=== PATIENT | female | born 1975 | race Caucasian/White ===

== ENCOUNTER → 2021-02-20 13:37 | Outpatient (CLI) | payer OTHER, SELFPAY ==
--- NOTE | 2021-02-20 13:42 | DI.ECHO.S_ITS ---
[facility] +---------+ : : [address] : [address] : : : : [id number] : : : : Phone: [phone] +---------+ Echocardiogram Report + + :Name: JAMAAL KELSEY Study Date: 02/20/2021 Height: 59.5 in: :[facility] ReadingLocation: Weight: 190 lb : : Gender: Female BSA: 1.8 m2 : :: 1975 Age: 46 yrs BP: 142/99 mmHg: :Reason For Study: DYSPNEA : :Ordering Physician: MAKENZIE, : :SUDHA Performed By: Suyapa Aguirre : :Referring: SUDHA ANAYA : + + Interpretation Summary 1) Normal left ventricular thickness, size, wall motion, and systolic function (EF 60-65%). 2) Normal right ventricular size and function. 3) Bicuspid aortic valve suspected. 4) Mild aortic stenosis present (mean gradient 17.5mm Hg). It appears to be overcalculated (1.3cm2) using the continuity equation. Visually, valve opens fairly well and there is not hemodynamically significant aortic stenosis. 5) The ascending aorta is mildly enlarged at 3.7cm. 6) No prior Echo available for comparison. Procedure: A two-dimensional transthoracic echocardiogram with color flow and Doppler was performed. The study quality was technically adequate. There is no prior echocardiogram noted for this patient. The patient was in sinus rhythm with heart rates between 66-76 bpm during the exam. Left Ventricle: The left ventricle is normal in size and wall thickness. The ejection fraction is estimated to be 60-65%. Left ventricular systolic function appears normal without focal wall motion abnormalities. Right Ventricle: The right ventricle is normal in size and function. Atria: The left atrial size is normal. Right atrial size is normal. There is no Doppler evidence for an interatrial shunt. Mitral Valve: The mitral valve is normal in structure and function. There is trace mitral regurgitation. Aortic Valve: The aortic valve opens well. A bicuspid aortic valve cannot be excluded. The peak aortic velocity is 2.78 m/sec. The aortic valve mean gradient is 18 mmHg. The calculated aortic valve area is 1.3 cm2. There is mild aortic regurgitation. Tricuspid Valve: The tricuspid valve is normal in structure and function. There is trace tricuspid regurgitation. Pulmonary artery pressures cannot be estimated because of the lack of a measurable TR jet velocity but the IVC suggests a CVP of around 3 mmHg. Pulmonic Valve: The pulmonic valve leaflets are thin and pliable; valve motion is normal. There is mild pulmonic regurgitation. Great Vessels: The aortic root is normal size. The ascending aorta is mildly enlarged. The IVC is of normal diameter and collapses greater than 50% with a sniff. This suggests a low right atrial pressure of 3 mm Hg. Pericardium/ Pleura There is no pericardial effusion. There is no pleural effusion. MMode/2D Measurements & Calculations LVIDd: 4.6 cm LVOT diam: 2.3 cm LVIDs: 3.2 cm Ao root diam: 3.3 cm FS: 29.3 % asc Aorta Diam: 3.7 cm IVSd: 0.97 cm Ao Arch Diam (Prox Trans): 2.9 cm LVPWd: 0.96 cm LV brunner. diameter/BSA (cm/m^2): 2.5 LV sys. diameter/BSA (cm/m^2): 1.8 LA A2 area: 17.3 cm2 RA long axis: 4.9 cm LA A4 area: 15.0 cm2 RA area: 13.5 cm2 LA length (vol): 5.5 cm RA vol: 31.4 ml LA vol: 40.1 ml RA : 17.3 ml/m2 LA vol index: 22.1 ml/m2 IVC diam: 1.2 cm RVD1 (basal): 3.9 cm TAPSE: 1.7 cm Doppler Measurements & Calculations Ao V2 max: 277.8 cm/sec LVOT Max Arya: 83.0 cm/sec Ao V2 mean: 196.9 cm/sec LV V1 max P.8 mmHg Ao max P.9 mmHg LV V1 VTI: 18.4 cm Ao mean P.5 mmHg EDWARD(I,D): 1.4 cm2 Ao V2 VTI: 57.7 cm EDWARD(V,D): 1.3 cm2 sev ratio: 0.32 EDWARD indexed to BSA (cm^2/m^2): 0.76 MV E max arya: 87.0 cm/sec PA V2 max: 103.3 cm/sec MV A max arya: 111.2 cm/sec PA V2 mean: 74.6 cm/sec MV E/A: 0.78 PA mean P.5 mmHg Med Peak E' Arya: 4.8 cm/sec PA pr(Accel): 34.5 mmHg E/E' med: 18.0 Lat Peak E' Arya: 9.9 cm/sec E/E' lat: 8.8 E/e' average: 13.4 MV dec time: 0.25 sec SV(OT): 79.5 ml Reading Physician:10:06 AM
== END ==
PROVIDERS: Family Provider Internal Medicine; PCP Internal Medicine; Referring Provider Internal Medicine Cardiovascular Disease; Visit Provider Internal Medicine Cardiovascular Disease
DX: I35.1 Nonrheumatic aortic (valve) insufficiency (principal); I37.1 Nonrheumatic pulmonary valve insufficiency; I77.89 Other specified disorders of arteries and arterioles; R06.00 Dyspnea, unspecified
CPT/HCPCS: 93306

== ENCOUNTER → 2023-02-28 12:10 | Outpatient (CLI) | payer OTHER, SELFPAY ==
--- NOTE | 2023-02-28 | DI.ECHO.S_ITS ---
[facility] +---------+ : : [address] : [address] : : [place] : : : : [id number] : : : : Phone: [phone]---------+ Echocardiogram Report + + :Name: JAMAAL KELSEY Study Date: 02/28/2023 Height: 59 in : :[facility] ReadingLocation: Weight: 185 lb : : Gender: Female BSA: 1.8 m2 : :: 1975 Age: 48 yrs BP: 147/100 mmHg: :Reason For Study: Nonrheumatic Aortic Valve Stenosis : :Ordering Physician: MAKENZIE, : :SUDHA Performed By: Tiffanie Guzman : :Referring: SUDHA ANAYA : + + Interpretation Summary 1) Mildly increased left ventricular thickness (concentric) with normal size, normal wall motion, and normal systolic function (EF 55-60%). 2) Normal right ventricular size and function. 3) Bicuspid aortic valve suspected. 4) Mild aortic stenosis present (mean gradient 18mm Hg). It appears to be overcalculated (1.2cm2) using the continuity equation. Visually, valve opens fairly well and there is no hemodynamically significant aortic stenosis. 5) Compared to the Echo done 02/20/2021, no significant change. Procedure: A two-dimensional transthoracic echocardiogram with color flow and Doppler was performed. The study quality was technically difficult. Comparison is made with the echocardiogram of 02/20/2021. A contrast injection of Definity was performed to improve assessment of LV function. The patient was in normal sinus rhythm during the exam. Left Ventricle: The left ventricle is normal in size. There is mild concentric left ventricular hypertrophy. The ejection fraction is estimated to be 55-60%. Left ventricular systolic function is normal. Diastolic parameters suggest a relaxation abnormality of the left ventricle, consistent with probable normal filling pressures. Right Ventricle: The right ventricle is normal size. The right ventricular systolic function is normal. Atria: The left atrial size is normal. Right atrial size is normal. There is no Doppler evidence for an interatrial shunt. Mitral Valve: The mitral valve is not well visualized. There is no mitral valve stenosis. There is no mitral regurgitation noted. Aortic Valve: A bicuspid aortic valve is suspected. The aortic valve opens well. There is mild aortic valve sclerosis. There is mild aortic stenosis. The peak aortic velocity is 2.88 m/sec. The aortic valve mean gradient is 19 mmHg. No aortic regurgitation is present. Tricuspid Valve: The tricuspid valve is not well visualized. There is no tricuspid stenosis. There is trace tricuspid regurgitation. Pulmonary artery pressures cannot be estimated because of the lack of a measurable TR jet velocity. Pulmonic Valve: The pulmonic valve is not well visualized. There is no pulmonic valvular stenosis. There is trace pulmonic regurgitation. Great Vessels: The aortic root is not well visualized. The ascending aorta is normal in size. The pulmonary artery is normal size. The IVC is of normal diameter and collapses greater than 50% with a sniff. This suggests a low right atrial pressure of 3 mm Hg. Pericardium/ Pleura There is no pericardial effusion. There is no pleural effusion. MMode/2D Measurements & Calculations LVIDd: 5.0 cm LVOT diam: 2.3 cm LVIDs: 3.2 cm asc Aorta Diam: 2.8 cm FS: 36.0 % EPSS: 0.80 cm IVSd: 1.2 cm LVPWd: 1.1 cm LV brunner. diameter/BSA (cm/m^2): 2.8 LV sys. diameter/BSA (cm/m^2): 1.8 LA A2 area: 15.6 cm2 RA long axis: 3.9 cm LA A4 area: 17.2 cm2 RA area: 10.6 cm2 LA length (vol): 5.2 cm RA vol: 24.5 ml LA vol: 44.1 ml RA : 13.7 ml/m2 LA vol index: 24.7 ml/m2 RVD1 (basal): 3.8 cm LVAd ap4: 30.3 cm2 LVAs ap4: 18.3 cm2 LVLs ap4: 6.3 cm LVAd ap2: 27.7 cm2 TAPSE_phl: 1.7 cm LVLd ap2: 6.9 cm LVAs ap2: 16.9 cm2 LVLs ap2: 5.9 cm Doppler Measurements & Calculations Ao V2 max: 272.7 cm/sec LVOT Max Arya: 78.3 cm/sec Ao V2 mean: 196.3 cm/sec LV V1 max P.5 mmHg Ao max P.0 mmHg LV V1 VTI: 18.2 cm Ao mean P.7 mmHg EDWARD(I,D): 1.2 cm2 Ao V2 VTI: 64.0 cm EDWARD(V,D): 1.2 cm2 sev ratio: 0.28 EDWARD indexed to BSA (cm^2/m^2): 0.69 MV E max arya: 82.0 cm/sec PA V2 max: 98.6 cm/sec MV A max arya: 123.0 cm/sec PA V2 mean: 72.2 cm/sec MV E/A: 0.67 PA mean P.0 mmHg Med Peak E' Arya: 6.7 cm/sec PA pr(Accel): 23.2 mmHg E/E' med: 12.3 Lat Peak E' Arya: 6.9 cm/sec E/E' lat: 11.9 E/e' average: 12.1 MV dec time: 0.39 sec SV(LVOT): 78.7 ml AV VR_phl: 0.29 EDWARD(VTI)/BSA_phl: 0.50 MV P1/2t-pr_phl: 115.0 msec Reading Physician:03:59 PM
== END ==
PROVIDERS: Family Provider Internal Medicine; PCP Internal Medicine; Referring Provider Internal Medicine Cardiovascular Disease; Visit Provider Internal Medicine Cardiovascular Disease
DX: I35.0 Nonrheumatic aortic (valve) stenosis (principal)
CPT/HCPCS: 93306; Q9957

== ENCOUNTER → 2025-03-08 12:40 | Outpatient (CLI) | payer OTHER, SELFPAY ==
--- NOTE | 2025-03-08 12:41 | DI.ECHO.S_ITS ---
[facility] : : [address] : : [place] : : [id number] : : Phone: [phone] Echocardiogram Report + + :Name: JAMAAL KELSEY Study Date: 03/08/2025 Height: 59 in : :[facility] ReadingLocation: Weight: 200 lb : : Gender: Female BSA: 1.8 m2 : :: 1975 Age: 50 yrs BP: 148/99 mmHg: :Reason For Study: BICUSPID AORTIC VALVE : :Ordering Physician: MAKENZIE, : :SUDHA Performed By: Kurt Forman : :Referring: SUDHA ANAYA : + + Interpretation Summary 1) Mildly increased left ventricular thickness (concentric) with normal size, normal wall motion, and normal systolic function (EF 55-60%). 2) Normal right ventricular size and function. 3) Bicuspid aortic valve suspected. 4) There is mild to moderate aortic stenosis (valve area 1.2cm2, mean gradient 20mmHg, severity ratio 0.33). 5) The ascending aorta is mildly enlarged at 4.1cm. 6) Compared to the echo done 02/28/2023, mild-moderate aortic stenosis is present on this study. Procedure: A two-dimensional transthoracic echocardiogram with color flow and Doppler was performed. A contrast injection of Definity was performed to improve assessment of LV function. The study quality was technically difficult. Comparison is made with the echocardiogram of 02/28/2023. The patient was in normal sinus rhythm during the exam. Left Ventricle: The left ventricle is normal in size. Left ventricular wall thickness is mildly increased. There is no ventricular septal defect visualized. The ejection fraction is estimated to be 55-60%. Diastolic parameters suggest a relaxation abnormality of the left ventricle, consistent with probable normal filling pressures. Right Ventricle: The right ventricle is mildly dilated. The right ventricular systolic function is normal. Atria: The left atrial size is normal. Right atrial size is normal. There is no Doppler evidence for an interatrial shunt. Mitral Valve: There is mild mitral annular calcification. The mitral valve leaflets are mildly calcified. There is no mitral regurgitation noted. Aortic Valve: The aortic valve is not well visualized. A bicuspid aortic valve cannot be excluded. The peak aortic velocity is 2.96 m/sec. The aortic valve mean gradient is 20.4 mmHg. There is mild to moderate aortic stenosis. No aortic regurgitation is present. Tricuspid Valve: The tricuspid valve is not well visualized. No tricuspid regurgitation. Pulmonic Valve: The pulmonic valve is not well visualized. There is trace pulmonic regurgitation. Great Vessels: The aortic root is normal size. The ascending aorta is mildly enlarged. The pulmonary artery is normal size. The IVC is of normal diameter and collapses greater than 50% with a sniff. This suggests a low right atrial pressure of 3 mm Hg. Pericardium/ Pleura There is no pericardial effusion. There is no pleural effusion. MMode/2D Measurements & Calculations LVIDd: 4.4 cm LVOT diam: 2.2 cm LVIDs: 3.0 cm Ao root diam: 3.6 cm FS: 31.3 % asc Aorta Diam: 4.1 cm EPSS: 1.0 cm IVSd: 1.2 cm LVPWd: 1.2 cm LV brunner. diameter/BSA (cm/m^2): 2.4 LV sys. diameter/BSA (cm/m^2): 1.7 LA A2 area: 19.9 cm2 RA long axis: 4.1 cm LA A4 area: 17.3 cm2 RA area: 12.9 cm2 LA length (vol): 5.9 cm RA vol: 34.9 ml LA vol: 49.5 ml RA : 18.9 ml/m2 LA vol index: 26.8 ml/m2 IVC diam: 1.3 cm RVD1 (basal): 4.5 cm RVD2 (mid): 4.1 cm TAPSE: 2.6 cm Doppler Measurements & Calculations Ao V2 max: 296.2 cm/sec LVOT Max Arya: 88.4 cm/sec Ao V2 mean: 215.5 cm/sec LV V1 max P.1 mmHg Ao max P.1 mmHg LV V1 VTI: 23.4 cm Ao mean P.4 mmHg EDWARD(I,D): 1.2 cm2 Ao V2 VTI: 70.5 cm EDWARD(V,D): 1.1 cm2 sev ratio: 0.33 EDWARD indexed to BSA (cm^2/m^2): 0.68 MV E max arya: 85.9 cm/sec PA V2 max: 116.6 cm/sec MV A max arya: 111.6 cm/sec PA V2 mean: 71.6 cm/sec MV E/A: 0.77 PA mean P.4 mmHg Med Peak E' Arya: 5.6 cm/sec PA pr(Accel): 48.2 mmHg E/E' med: 15.4 Lat Peak E' Arya: 7.1 cm/sec E/E' lat: 12.0 E/e' average: 13.7 MV dec time: 0.28 sec SV(OT): 88.1 ml Reading Physician:03:57 PM
== END ==
LOC: ECHO 12:40
PROVIDERS: Family Provider Internal Medicine; PCP Internal Medicine; Referring Provider Internal Medicine Cardiovascular Disease; Visit Provider Internal Medicine Cardiovascular Disease
DX: Q23.1 Congenital insufficiency of aortic valve (principal); I34.81 Nonrheumatic mitral (valve) annulus calcification; I35.0 Nonrheumatic aortic (valve) stenosis; I77.810 Thoracic aortic ectasia
CPT/HCPCS: C8929; Q9957